=== PATIENT | male | born 2000 | race Caucasian/White ===

== ENCOUNTER 2023-06-19 06:29 | Emergency (ER) | payer MEDICAID, SELFPAY ==
[2023-06-19 06:34] VITALS: BP 118/65; PULSE 68; RESP 18; TEMP 36.6; O2SAT 96; BMI 19.5
--- NOTE | 2023-06-19 06:42 | W.ED.NAVMDI ---
HPI - Nausea/Vomiting/Diarrhea General: Chief complaint: Nausea/Vomiting/Diarrhea Stated complaint: abd pain Time Seen by Provider: 06/19/23 06:40 Source: patient Mode of arrival: ambulatory History of Present Illness: 22-year-old male presents emergency room with nausea vomiting abdominal discomfort began last night. He drank heavily last night and was using marijuana. Several episodes of vomiting he is concerned because he thought it looked like he had vomited milk and he had not had milk for months. He took 8 mg Zofran prior to arrival. Denies any medic easy melena hematemesis coffee-ground emesis MD elicited complaint: nausea and vomiting Pertinent past history: alcohol abuse Onset (ago): hour(s) Description of vomiting: food contents Associated nausea: Yes Associated abdominal pain: Yes Location of pain: Diffuse Quality: cramping Exacerbating factors: none Relieving factors: none Context: alcohol abuse Associated symtoms: Reports anorexia and nausea; Denies altered mental status, anxiety, bloating, change in vision, chest pain, cough, diaphoresis, decreased urine output, dizziness, dysuria, epistaxis, fatigue, fecal incontinence, fevers/chills, headache(s), malaise, myalgias, numbness, palpitations, rash, short of breath, syncope, tenesmus, tinnitus or weakness Review of Systems Const: Denies: fever(s), chills, fatigue, malaise or diaphoresis Eyes: Denies: change in vision ENMT: Denies: tinnitus or epistaxis Card: Denies: chest pain, palpitations or syncope Resp: Denies: dyspnea GI: Reports: abdominal pain, nausea and vomiting; Denies: hematemesis, coffee ground emesis, bloating, fecal incontinence, hematochezia or melena : Denies: dysuria, urinary frequency or urinary urgency Musc: Denies: neck pain or back pain Skin/Breast: Denies: rash Neuro: Denies: headache(s) or dizziness Psych: Denies: anxiety PFSH ED PFSH: Medical History (Updated 06/19/23 @ 07:34 by Bjorn Whipple DO) Chlamydia contact Psychiatric care Social History Smoking and tobacco/nicotine status: current every day tobacco/nicotine user Physical Exam Const: COMMON NORMALS: no acute distress EXAM LIMITATIONS: no altered mental status GENERAL APPEARANCE: cooperative and comfortable ORIENTATION/CONSCIOUSNESS: Yes awake, Yes oriented to person, Yes oriented to place and Yes oriented to time HENMT: COMMON NORMALS: normocephalic, atraumatic and hearing grossly normal bilaterally HEAD & SCALP: normocephalic and atraumatic Resp: COMMON NORMALS: normal respiratory effort, No retractions, No use of accessory muscles and clear to auscultation bilaterally AUSCULTATION: clear to auscultation bilaterally Cardio: COMMON NORMALS: regular rate, regular rhythm and No murmurs present (Cardio) RATE: regular rate RHYTHM: regular rhythm GI: COMMON NORMALS: Soft to palpation and No hepatosplenomegaly present AUSCULTATION: Yes normoactive bowel sounds PALPATION: Yes Soft to palpation, No Tenderness to palpation present (GI), No Guarding due to palpation present (GI) and Yes No hepatosplenomegaly present Extremity: COMMON NORMALS: normal to inspection, capillary refill normal, no clubbing, cyanosis or edema, no calf tenderness and no pedal edema Neuro: SENSORIUM/ORIENTATION: Yes oriented to person, Yes oriented to place and Yes oriented to time Skin: COMMON NORMALS: no rashes or lesions noted GENERAL SKIN EXAM: no rashes or lesions noted Course Vital Signs: Vital signs: Vital Signs Temperature 97.9 F 06/19/23 06:34 Pulse Rate 70 06/19/23 06:59 Respiratory Rate 16 06/19/23 06:59 Blood Pressure 118/65 06/19/23 06:59 Pulse Oximetry 98 06/19/23 06:59 Oxygen Delivery Me thod Room Air 06/19/23 06:34 MDM - Nausea/Vomiting/Diarrhea Medical Decision Making Labs reviewed. Abdominal exam benign. Discussed the patient essentially believe he has a hangover effect from the alcohol binge drinking nausea vomiting secondary to alcoholic gastritis. IV fluids given antiemetics given as well as Pepcid patient still he is doing better discharge home recommend abstaining from alcohol Medical Records I reviewed the patient's medical records. Lab Data I reviewed the patient's lab results. 06/19/23 06:43 06/19/23 06:43 Laboratory Results WBC 9.52 10^3/uL (3.29-11.43) 06/19/23 06:43 RBC 4.79 10^6/uL (3.85-5.65) 06/19/23 06:43 Hgb 15.50 g/dL (11.27-16.99) 06/19/23 06:43 Hct 45.1 % (37-53) 06/19/23 06:43 MCV 94.2 fl (82-101) 06/19/23 06:43 MCH 32.4 pg (27-33) 06/19/23 06:43 MCHC 34.4 g/dL (30-55) 06/19/23 06:43 RDW 12.1 % (12.1-15.1) 06/19/23 06:43 Plt Count 273 10^3/cmm (157-399) 06/19/23 06:43 MPV 10.5 fL (7.4-10.4) H 06/19/23 06:43 Neut % (Auto) 69.5 % 06/19/23 06:43 Lymph % (Auto) 22.1 % 06/19/23 06:43 [place] % (Auto) 4.6 % 06/19/23 06:43 Eos % (Auto) 2.9 % 06/19/23 06:43 Baso % (Auto) 0.5 % 06/19/23 06:43 Neut # (Auto) 6.61 10^3/uL (1.8-7.7) 06/19/23 06:43 Lymph # (Auto) 2.1 10^3/uL (0.8-4.8) 06/19/23 06:43 [place] # (Auto) 0.4 10^3/uL (0.2-0.9) 06/19/23 06:43 Eos # (Auto) 0.3 10^3/uL (0.0-0.8) 06/19/23 06:43 Baso # (Auto) 0.1 10^3/uL (0.0-0.1) 06/19/23 06:43 Nucleated RBC % (auto) 0 % 06/19/23 06:43 Nucleated RBCs # 0.0 /100WBC 06/19/23 06:43 Sodium 141 mmol/L (136-145) 06/19/23 06:43 Potassium 4.3 mmol/L (3.5-5.1) 06/19/23 06:43 Chloride 104 mmol/L (98-107) 06/19/23 06:43 Carbon Dioxide 26 mmol/L (22-29) 06/19/23 06:43 Anion Gap 15.3 (5-19) 06/19/23 06:43 BUN 14 mg/dL (6-20) 06/19/23 06:43 Creatinine 0.7 mg/dL (0.7-1.2) 06/19/23 06:43 GFR Calculation 139.8 mL/min (90-130) H 06/19/23 06:43 Glucose 91 mg/dL (65-115) 06/19/23 06:43 Calculated Osmolality 292 mOsm/kg (285-295) 06/19/23 06:43 Calcium 9.6 mg/dL (8.5-10.5) 06/19/23 06:43 Total Bilirubin 0.4 mg/dL (0.15-1.2) 06/19/23 06:43 AST 19 U/L (0-40) 06/19/23 06:43 ALT 11 U/L (0-41) 06/19/23 06:43 Alkaline Phosphatase 98 U/L (40-130) 06/19/23 06:43 Total Protein 7.7 g/dL (6.6-8.7) 06/19/23 06:43 Albumin 5.0 g/dL (3.5-5.2) 06/19/23 06:43 Globulin 2.7 g/dL (1.3-4.6) 06/19/23 06:43 Lipase 18 U/L (13-60) 06/19/23 06:43 Urine Color Yellow (Yellow) 06/19/23 06:43 Urine Appearance Hazy (CLEAR) A 06/19/23 06:43 Urine pH 9 (5-7) H 06/19/23 06:43 Ur Specific [place] 1.010 (1.005-1.030) 06/19/23 06:43 Urine Protein Neg (Negative) 06/19/23 06:43 Urine Glucose (UA) Norm (Normal) 06/19/23 06:43 Urine Ketones 1+ (Negative) H 06/19/23 06:43 Urine Blood Neg (Negative) 06/19/23 06:43 Urine Nitrate Negative (Negative) 06/19/23 06:43 Urine Bilirubin Neg (Negative) 06/19/23 06:43 Urine Urobilinogen Norm mg/dL (Negative) 06/19/23 06:43 Ur Leukocyte Esterase Negative (Negative) 06/19/23 06:43 Urine RBC 0-4 /hpf (0-2) H 06/19/23 06:43 Urine WBC 0-4 /hpf (0-5) H 06/19/23 06:43 Ur Squamous Epith Cells 0-4 /hpf (0-5) H 06/19/23 06:43 Amorphous Sediment 4+ /hpf 06/19/23 06:43 Urine Bacteria Trace /hpf (NONE) 06/19/23 06:43 No radiology studies performed this visit Discharge Plan Discharge Patient Disposition: Home Clinical Impression: Hangover, Alcohol abuse, Alcoholic gastritis without bleeding Condition: Stable Prescriptions: New ondansetron HCl 4 mg tablet 4 mg PO Q6H PRN (Reason: nausea and vomiting) Qty: 20 0RF Pepcid 40 mg tablet 40 mg PO BID Qty: 10 0RF No Action azithromycin 500 mg tablet 500 mg PO DAILY Qty: 2 0RF Discharge Orders: Discharge ED (Routine); Ordered 06/19/23 Ordered By: Bjorn Whipple Referrals: Mireya Walker [Primary Care Provider] - Discharge Diet: Clear Liquid Discharge Activity: Increase activity as tolerated Patient Instructions: Abuse of Alcohol (ED), Opioid Safety, Pain Management Activity Restrictions/Additional Instructions: Abstain from alcohol Coding Level of Care Code ED General Cargo Clerk for Briana Leroy
[2023-06-19] MEDS: famotidine 20 mg/2 mL INJ 40 MG IVP (06:51)
[2023-06-19] MEDS: sodium chloride 0.9% 1,000 ML 999 ML IV (06:52)
[2023-06-19 06:59] VITALS: BP 118/65; PULSE 70; RESP 16; O2SAT 98
[2023-06-19 07:04] LABS: Basophils # 0.1 10^3/uL (0.0-0.1); Basophils % 0.5 %; Eosinophils # 0.3 10^3/uL (0.0-0.8); Eosinophils % 2.9 %; Hematocrit 45.1 % (37-53); Lymphocytes # 2.1 10^3/uL (0.8-4.8); Lymphocytes % 22.1 %; Mean Corpuscular HGB Conc 34.4 g/dL (30-55); Mean Corpuscular Hemoglobin 32.4 pg (27-33); Mean Corpuscular Volume 94.2 fl (82-101); Mean Platelet Volume 10.5 fL (7.4-10.4); Monocytes # 0.4 10^3/uL (0.2-0.9); Monocytes % 4.6 %; Neutrophils # 6.61 10^3/uL (1.8-7.7); Neutrophils % 69.5 %; Nucleated Red Blood Cells % 0 %; Platelet Count 273 10^3/cmm (157-399); Red Blood Count 4.79 10^6/uL (3.85-5.65); Red Cell Distribution Width 12.1 % (12.1-15.1); White Blood Count 9.52 10^3/uL (3.29-11.43)
[2023-06-19 07:24] LABS: Alanine Aminotransferase 11 U/L (0-41); Alkaline Phosphatase 98 U/L (40-130); Anion Gap 15.3 (5-19); Aspartate Amino Transferase 19 U/L (0-40); Blood Urea Nitrogen 14 mg/dL (6-20); Calcium 9.6 mg/dL (8.5-10.5); Carbon Dioxide 26 mmol/L (22-29); Chloride 104 mmol/L (98-107); Globulin 2.7 g/dL (1.3-4.6); Glomerular Filtration Rate 139.8 mL/min (90-130); Glucose 91 mg/dL (65-115); Lipase 18 U/L (13-60); Osmolality Calculated 292 mOsm/kg (285-295); Potassium 4.3 mmol/L (3.5-5.1); Sodium 141 mmol/L (136-145); Total Bilirubin 0.4 mg/dL (0.15-1.2); Total Protein 7.7 g/dL (6.6-8.7)
[2023-06-19 07:29] LABS: Add Urine Microscopic? YES; Amorphous Sediment Urine 4+ /hpf; Bacteria Urine TRACE /hpf; Bilirubin Urine Neg (Negative); Blood Urine Neg (Negative); Glucose Urine UA Norm (Normal); Ketones Urine 1+ (Negative); Leukocyte Esterase Urine Negative (Negative); Nitrate Urine Negative (Negative); Protein Urine Neg (Negative); RBC Urine 0-4 /hpf (0-2); Squamous Epithelial Cell Urine 0-4 /hpf (0-5); Urine Appearance Hazy (CLEAR); Urine Color Yellow (Yellow); Urobilinogen Urine Norm (Negative); WBC Urine 0-4 /hpf (0-5); pH Urine 9 (5-7)
[2023-06-19 07:30] LABS: Add Urine Culture? No
== END 2023-06-19 07:50 | disposition home or self-care (01) ==
PROVIDERS: Emergency Provider Family Medicine; PCP Nurse Practitioner Family
DX: F10.129 Alcohol abuse with intoxication, unspecified (principal); Y90.9 Presence of alcohol in blood, level not specified; F17.210 Nicotine dependence, cigarettes, uncomplicated; K29.20 Alcoholic gastritis without bleeding
CPT/HCPCS: 80053; 81001; 83690; 85025; 96374; 99284; J3490; J7030